=== PATIENT | male | born 1955 | race Caucasian/White ===

== ENCOUNTER → 2017-07-21 | Outpatient (CLI) | payer BC ==
[2017-07-21 17:45] LABS: ALT/SGPT 22 U/L (12-78); BLOOD UREA NITROGEN 13 mg/dl (7-18); BUN/CREATININE RATIO 15.9 (10-20); CARBON DIOXIDE 26 mmol/L (21-32); CHLORIDE 108 mmol/L (98-107); CHOLESTEROL 210 mg/dl (0-200); CREATININE 0.82 mg/dl (0.60-1.40); GLUCOSE 86 mg/dl (70-99); POTASSIUM 4.1 mmol/L (3.5-5.1); SODIUM 141 mmol/L (136-145); TRIGLYCERIDES 110 mg/dl (0-150); VERY LOW DENSITY LIPOPROT CALC 22 mg/dl
[2017-07-21 17:49] LABS: ALB/GLOB RATIO 1.3 (0.9-2); ALKALINE PHOSPHATASE 118 U/L (45-117); AST/SGOT 17 U/L (15-37); CHOLESTEROL/HDL RATIO 3.9; HDL CHOLESTEROL 54 mg/dl; LDL CHOLESTEROL CALCULATED 134 mg/dl
== END | disposition home or self-care (01) ==
LOC: C.LABBFT 15:09
PROVIDERS: ATTEND Internal Medicine
DX: Z00.00 Encounter for general adult medical examination without abnormal findings (principal); E78.5 Hyperlipidemia, unspecified; Z12.5 Encounter for screening for malignant neoplasm of prostate

== ENCOUNTER 2019-10-16 22:17 | Inpatient (IN) ==
[2019-10-16 23:00] LABS: Basophils # (auto) 0.04 K/uL (0-0.2); Basophils % (auto) 0.6 %; Eosinophils # (auto) 0.12 K/uL (0-0.5); Eosinophils % (auto) 1.8 %; Hematocrit (blood only) 42.8 % (42-52); Hemoglobin 14.5 g/dL (14.0-18.0); Immature Granulocytes # (auto) 0.01 K/uL (0.00-0.02); Immature Granulocytes % (auto) 0.1 %; Lymphocytes # (auto) 2.74 K/uL (1.2-3.4); Lymphocytes % (auto) 40.2 %; Mean Corpuscular Hemoglobin 28.5 pg (25-34); Mean Corpuscular Hgb Conc 33.9 g/dL (32-36); Mean Corpuscular Volume 84.3 fL (80-100); Mean Platelet Volume 8.5 fL (7.4-10.4); Monocytes # (auto) 0.66 K/uL (0.11-0.59); Monocytes % (auto) 9.7 %; Neutrophils # (auto) 3.24 K/uL (1.4-6.5); Neutrophils % (auto) 47.6 %; Platelet Count 277 K/uL (130-400); RDW Coefficient of Variation 13.2 % (11.5-14.5); RDW Standard Deviation 40.1 fL (36.4-46.3); Red Blood Count 5.08 M/uL (4.7-6.1); White Blood Count 6.81 K/uL (4.8-10.8)
--- NOTE | 2019-10-16 23:03 | XRay Report ---
SINGLE VIEW CHEST CLINICAL HISTORY: Change in mental status. FINDINGS: An AP, portable, upright chest radiograph is obtained. No prior studies are available for c omparison at the time of dictation. The examination is degraded by portable technique and patient rot ation. The cardiomediastinal silhouette is unremarkable. Airspace opacities are noted in the left keri ng base. The right lung appears clear. No large pleural effusion is identified. No pneumothorax is se en. The bony thorax is grossly intact. IMPRESSION: There are airspace opacities at the left lung base which likely represent atelectasis. Co rrelate clinically for evidence of superimposed pneumonia. ACT 112: Negative or not required by law. Electronically signed by: Moisés Pal M.D. 10/16/2019 11:02 PM
[2019-10-16 23:04] LABS: Alanine Aminotransferase 29 U/L (12-78); Albumin Level 3.7 gm/dl (3.4-5.0); Aspartate Aminotransferase 18 U/L (15-37); BUN Creatinine Ratio 14.6 (10-20); Blood Urea Nitrogen 15 mg/dl (7-18); Calcium 8.7 mg/dl (8.5-10.1); Carbon Dioxide 30 mmol/L (21-32); Chloride 107 mmol/L (98-107); Creatinine Clr Calc Pharmacy 75.8 ml/min; Est GFR (African American) 89.2; Est GFR (Non-African American) 76.9; Glucose 91 mg/dl (70-99); Magnesium 2.1 mg/dl (1.8-2.4); Potassium 3.9 mmol/L (3.5-5.1); Sodium 141 mmol/L (136-145)
[2019-10-16 23:07] LABS: Partial Thromboplastin Ratio 0.9; Partial Thromboplastin Time 25.1 Seconds (21.0-31.0)
[2019-10-16 23:09] LABS: Albumin Globulin Ratio 1.1 (0.9-2); Alkaline Phosphatase 115 U/L (45-117); Bilirubin,Total 0.3 mg/dl (0.2-1); Globulin 3.3 gm/dl (2.5-4.0); Troponin I < 0.015 ng/ml (0-0.045)
--- NOTE | 2019-10-16 23:22 | Emergency Department Note ---
History of Present Illness General Chief Complaint: Altered Mental Status Stated Complaint: AMS Source: patient and family Mode of arrival: EMS Limitations: no limitations History of Present Illness Provider complaint: altered mental status and decreased responsiveness Onset (ago): hour(s) (1.5) Time: 21:00 Timing confirmed by: spouse Severity: mild Current Pain Intensity: 0 Consistency of symptoms: waxing and waning (completely subsided) Context: no alcohol abuse, no trauma, no recent fever, no diabetes, no liver disease, no seizure disorder, no COPD and no HIV Associated symptoms: + denies other symptoms Treatments prior to arrival: none This 64-year-old male patient presents emergency department today via ambulance with complaints of altered mental status. The patient states he had a very long day today and was falling asleep on the couch this evening while watching TV and reading a magazine. He states he remembers getting up off of the couch, turning off the lights, and walking back the hallway toward the bedroom, and the next thing he remembers he was sitting on the couch again. The patient's family provides the remainder of the history. The patient's daughter states she went to the bathroom, and when she opened the door, her father was standing there staring into space. She states she tried to talk to him and ask him questions, and he was not responding. his eyes were open, there was no facial droop, but he was unable to speak. She was able to guide him back to the living room onto the couch, and another family member came to the house, which the patient states he does recall, but barely. This episode occurred at approximately 9:00 and lasted 10 to 15 minutes. Upon arrival of BLS, the patient continued to be somewhat altered, but upon arrival of the medics, the patient's symptoms had completely resolved. At this time, the patient states he feels completely normally. The patient denies any chest pain, dyspnea, numbness, tingling, weakness, nausea, vomiting, slurred speech, confusion, dizziness, headache, abdominal pain, or other associated symptoms. He denies any recent fever or illness. His daughter does indicate that last week while visiting the [facility], he was "clumsy", and was dropping objects and stumbling around. Again, there were no focal deficits at that time, and his symptoms resolved relatively quickly. He denies any recent trauma or injury. Home Medications Home Medications Medication Instructions Recorded Confirmed Type elfwsyak-rko-exfwu-vit K-lycop 1 tab PO DAILY 10/16/19 10/16/19 History [One-A-Day Men's Multivitamin] Allergies Allergy/AdvReac Type Severity Reaction Status Date / Time No Known Allergies Allergy Mild Unverified 10/16/19 23:25 Past Med/Surg History Medical History (Updated 10/17/19 @ 01:37 by Selin Galeas PA-C) No pertinent past medical history Surgical History No pertinent past surgical history Family History Father , 43 Myocardial infarction Brother Myocardial infarction Social History Preferred Language: Malagasy Feels Safe at Home: Yes Smoking Status: Never smoker Review of Systems A total of 10 systems reviewed and were otherwise negative Physical Exam Vital Signs Vital Signs - 24 hr 10/16/19 22:23 10/16/19 22:30 10/16/19 23:10 Temperature 36.8 C Temperature Source Oral Pulse Rate 58 L 59 L Pulse Rate [Apical] 61 Pulse Rate from SpO2 Sensor 60 Pulse Rhythm Regular Pulse Strength Normal Respiratory Rate 20 18 16 Blood Pressure 156/95 H 152/86 H Blood Pressure [Right Arm] 149/109 H Blood Pressure Mean 115 92 Blood Pressure Mean [Right Arm] 122 Blood Pressure Position Sitting Pulse Oximetry 97 100 98 Oxygen Delivery Method Room Air Sepsis Recent Fever Within 48 Hours No Sepsis New/Unexplained Change in Mental Status No Sepsis Action Taken by Nursing No Action Required 10/17/19 00:41 Temperature Temperature Source Pulse Rate Pulse Rate [Apical] 57 L Pulse Rate from SpO2 Sensor Pulse Rhythm Pulse Strength Respiratory Rate 18 Blood Pressure Blood Pressure [Right Arm] 154/86 H Blood Pressure Mean Blood Pressure Mean [Right Arm] 108 Blood Pressure Position Pulse Oximetry 97 Oxygen Delivery Method Room Air Sepsis Recent Fever Within 48 Hours Sepsis New/Unexplained Change in Mental Status Sepsis Action Taken by Nursing VITALS: Vitals are noted on the nurse's note and reviewed by myself. Vital signs stable. GENERAL: This is a 64-year-old white male, in no acute distress, nondiaphoretic, well-developed well-nourished. SKIN: The skin was without rashes, erythema, edema, or bruising. There is no tenting of the skin. Capillary refill less than 2 seconds. HEAD: Normocephalic atraumatic. EARS: External auditory canals clear, tympanic membranes pearly vinson without erythema or effusion bilaterally. EYES: Pupils equal round and reactive to light and accommodation. Conjunctivae without injection, sclerae without icterus. Extraocular movements intact. NOSE: Patent, turbinates without inflammation or discharge. No sinus tenderness. MOUTH: Mucous membranes moist. Tonsils are not enlarged. Pharynx without erythema or exudate. Uvula midline. Airway patent. Tongue does not deviate. NECK: Supple without nuchal rigidity. No lymphadenopathy. No thyromegaly. Cervical spine is nontender. No JVD. HEART: Regular rate and rhythm without murmurs gallops or rubs. LUNGS: Clear to auscultation bilaterally without wheezes, rales or rhonchi. No dullness to percussion. No retractions or accessory muscle use. ABDOMEN: Positive bowel sounds x 4. Normal tympanic percussion. Soft, nontender, without masses or organomegaly. Nayak sign negative. No guarding or rebound tenderness. MUSCULOSKELETAL: No muscle atrophy, erythema, or edema noted. Full range of motion without joint tenderness in all extremities. No tenderness to palpation. Normal gait. Strength 5/5 throughout. NEURO: Patient was alert and oriented to person place and time. Normal sensation to light and sharp touch. Deep tendon reflexes 2+ throughout. No focal neurological deficits. Cranial nerves II through XII grossly intact. Course The patient was seen and evaluated as above. IV access obtained, labs drawn. Imaging performed and reviewed by myself and radiologist as above. Labs reviewed by myself. I discussed the findings with the patient at bedside. I did recommend admission. The patient was agreeable. I discussed the case with my attending. I discussed the case with the case operator. [facility] Smith. He did agree to see and evaluate the patient. Administered Medications Ioversol (Optiray 320 100ml) 119 ml IV ONCE PRN PRN Reason: Interaction Checking Stop: 10/21/19 00:49 Last Admin: 10/17/19 00:50 Dose: 119 ml Documented by: [id number] Medical Decision Making Differential Diagnosis infection, electrolyte abnormalities, dysrhythmia, CVA, ICH, toxicologic, neurologic, ACS, alcoholic intoxication, altered mental status, delirium, dementia, hypoglycemia, hyponatremia, subarachnoid hemorrhage and sepsis Home Medications Current Medication List: was personally reviewed by me Laboratory Data Attestation: I reviewed the patient's lab results. No leukocytosis, anemia, thrombocytopenia. Renal, hepatic function, and electrolytes without significant abnormality. Troponin negative. Coags normal. : 10/16/19 22:29 10/16/19 22:29 Lab Results 10/16/19 10/16/19 10/16/19 Range/Units 22:29 22:29 22:29 WBC 6.81 (4.8-10.8) K/uL RBC 5.08 (4.7-6.1) M/uL Hgb 14.5 (14.0-18.0) g/dL Hct 42.8 (42-52) % MCV 84.3 (80-100) fL MCH 28.5 (25-34) pg MCHC 33.9 (32-36) g/dL RDW Std Deviation 40.1 (36.4-46.3) fL RDW Coeff of Macrina 13.2 (11.5-14.5) % Plt Count 277 (130-400) K/uL MPV 8.5 (7.4-10.4) fL Immature Gran % (Auto) 0.1 % Neut % (Auto) 47.6 % Lymph % (Auto) 40.2 % Boundary % (Auto) 9.7 % Eos % (Auto) 1.8 % Baso % (Auto) 0.6 % Immature Gran # (Auto) 0.01 (0.00-0.02) K/uL Neut # (Auto) 3.24 (1.4-6.5) K/uL Lymph # (Auto) 2.74 (1.2-3.4) K/uL Boundary # (Auto) 0.66 H (0.11-0.59) K/uL Eos # (Auto) 0.12 (0-0.5) K/uL Baso # (Auto) 0.04 (0-0.2) K/uL PT 10.0 (9.0-12.0) Seconds INR 1.0 (0.9-1.1) APTT 25.1 (21.0-31.0) Seconds PTT Ratio 0.9 Sodium 141 (136-145) mmol/L Potassium 3.9 (3.5-5.1) mmol/L Chloride 107 (98-107) mmol/L Carbon Dioxide 30 (21-32) mmol/L Anion Gap 4.0 (3-11) BUN 15 (7-18) mg/dl Creatinine 1.03 (0.6-1.4) mg/dl Est Cr Clr Drug Dosing 75.8 ml/min Est GFR ( Amer) 89.2 Est GFR (Non-Af Amer) 76.9 BUN/Creatinine Ratio 14.6 (10-20) Glucose 91 (70-99) mg/dl Calcium 8.7 (8.5-10.1) mg/dl Magnesium 2.1 (1.8-2.4) mg/dl Total Bilirubin 0.3 (0.2-1) mg/dl AST 18 (15-37) U/L ALT 29 (12-78) U/L Alkaline Phosphatase 115 (45-117) U/L Troponin I < 0.015 (0-0.045) ng/ml Total Protein 7.0 (6.4-8.2) gm/dl Albumin 3.7 (3.4-5.0) gm/dl Globulin 3.3 (2.5-4.0) gm/dl Albumin/Globulin Ratio 1.1 (0.9-2) Blood Type Antibody Screen 10/16/19 Range/Units 22:52 WBC (4.8-10.8) K/uL RBC (4.7-6.1) M/uL Hgb (14.0-18.0) g/dL Hct (42-52) % MCV (80-100) fL MCH (25-34) pg MCHC (32-36) g/dL RDW Std Deviation (36.4-46.3) fL RDW Coeff of Macrina (11.5-14.5) % Plt Count (130-400) K/uL MPV (7.4-10.4) fL Immature Gran % (Auto) % Neut % (Auto) % Lymph % (Auto) % Boundary % (Auto) % Eos % (Auto) % Baso % (Auto) % Immature Gran # (Auto) (0.00-0.02) K/uL Neut # (Auto) (1.4-6.5) K/uL Lymph # (Auto) (1.2-3.4) K/uL Boundary # (Auto) (0.11-0.59) K/uL Eos # (Auto) (0-0.5) K/uL Baso # (Auto) (0-0.2) K/uL PT (9.0-12.0) Seconds INR (0.9-1.1) APTT (21.0-31.0) Seconds PTT Ratio Sodium (136-145) mmol/L Potassium (3.5-5.1) mmol/L Chloride (98-107) mmol/L Carbon Dioxide (21-32) mmol/L Anion Gap (3-11) BUN (7-18) mg/dl Creatinine (0.6-1.4) mg/dl Est Cr Clr Drug Dosing ml/min Est GFR ( Amer) Est GFR (Non-Af Amer) BUN/Creatinine Ratio (10-20) Glucose (70-99) mg/dl Calcium (8.5-10.1) mg/dl Magnesium (1.8-2.4) mg/dl Total Bilirubin (0.2-1) mg/dl AST (15-37) U/L ALT (12-78) U/L Alkaline Phosphatase (45-117) U/L Troponin I (0-0.045) ng/ml Total Protein (6.4-8.2) gm/dl Albumin (3.4-5.0) gm/dl Globulin (2.5-4.0) gm/dl Albumin/Globulin Ratio (0.9-2) Blood Type A Positive Antibody Screen NEGATIVE Imaging Data Radiologist's Impression: CT HEAD: Findings: Right medial temporal lobe 2.7 x 2 cmarea of lowattenuation with subtle mass- effect on the right temporal horn this is suspicious for a subacute infarct. Subtle lowattenuation in the anterior right caudate head. Old lacunar infarct in the left basal ganglia. Focal infection or acute infarct is suspected. Consider MRI characterization. Paranasal sinuses, mastoid air cells are normal. Impression: 1. 2.7 x 2 cmright medial temporal lobe low-densityarea. Suspect acute/subacute infarct versus focal infection. Recommend MRI characterization. 2. Old lacunar infarct in left basal ganglia and right anterior caudate head Radiologist: Kajal Redmond MD SINGLE VIEW CHEST CLINICAL HISTORY: Change in mental status. FINDINGS: An AP, portable, upright chest radiograph is obtained. No prior lori dies are available for comparison at the time of dictation. The examination is degraded by portable technique and patient rotation. The cardiomediastinal silhouette is unremarkable. Airspace opacities are noted in the left lung base. The right lung appears clear. No large pleural effusion is identified. No pneumothorax is seen. The bony thorax is grossly intact. IMPRESSION: There are airspace opacities at the left lung base which likely represent atelectasis. Correlate clinically for evidence of superimposed pneumonia. ACT 112: Negative or not required by law. Electronically signed by: Moisés Pal M.D. 10/16/2019 11:02 PM ECG Data Attestation: I personally reviewed and interpreted this ECG as follows: Indication: altered mental status Rate (beats per minute): 58 Rhythm: sinus bradycardia Findings: no T-wave inversion, no ST elevation, no acute ischemic change, no prolonged QT and no ectopy Comparison ECG Date: no prior available Blood Pressure Blood Pressure Findings: Elevated blood pressure Blood Pressure Disposition: elevated BP felt to be situational Head Trauma GCS Score: 15 MDM Narrative This 64-year-old male patient presents to the emergency department today due to a transient episode of altered mental status which occurred approximately 1 1/2 hours prior to arrival. Upon arrival, his neuro examination is completely normal. There is no current deficit. The patient did apparently have an episode approximately 1 week ago of "clumsiness" according to his family. Work- up here in the ED does not show any acute laboratory abnormalities. CT imaging does show an area of acute to subacute infarct versus infection. Given the patient's symptoms and this finding, I did recommend admission for further evaluation and management. The patient will be admitted to the hospitalist service. Please see hospitalist dictation regarding ongoing management care of this patient. The chart was completed utilizing [employer] voice recognition software. Grammatical errors, random word insertions, pronoun errors, and incomplete sentences are an occasional consequence of this system due to software limita tions, ambient noise, and hardware issues. Any formal questions or concerns about the content, text, or information contained within the body of this dictation should be directly addressed to the provider for clarification. Impression & Plan CVA (cerebral vascular accident), Altered mental status Discharge Plan Visit Data Chief Complaint: Altered Mental Status Stated Complaint: AMS ED Provider: [facility] ED Midlevel Provider: Selin Galeas Discharge Problem: CVA (cerebral vascular accident), Altered mental status Patient Disposition: Admitted As Inpatient Forms Stand Alone Forms: [facility] Prescriptions Prescriptions: No Action One-A-Day Men's Multivitamin 400-20-300 mcg Tablet 1 tab PO DAILY RF: 0 Referrals Referrals: Caleb Galicia III, MD [Primary Care Provider] -
[2019-10-17] MEDS ORDERED: IOVERSOL 100ml IV PRN (00:50)
--- NOTE | 2019-10-17 01:29 | History & Physical Report ---
Date of Service October 17, 2019 Assessment & Plan (1) CVA (cerebral vascular accident): CT of head demonstrates a 2.7 x 2 right medial temporal lobe acute/subacute infarct versus focal infection. CTA of head and neck was normal. MRI unable to be done due to metal in the patient's hand. Patient admitted under the ischemic stroke without TPA protocol. Patient disqualified from TPA due to abnormal CT. Aspirin 81 mg p.o. daily. Check a hemoglobin A1c and fasting lipid panel. Hypercoagulable work-up. The patient will be admitted to telemetry for serial cardiac enzymes, serial EKG's, cardiac rhythm monitoring and a 2-D echocardiogram with Dopplers. Acute focal infection was brought up in the differential by radiology, however, the primary remaining issue to investigate would be that of SBE. The patient does not appear toxic. Consult neurology, PT, OT, speech therapy. Present on Admission?: Yes History of Present Illness Chief Complaint: Patient is brought to the emergency department due to a now spontaneously resolved episode of nonresponsiveness to family members of 10 to 15 minutes duration. Primary Care Provider: Caleb Galicia MD The patient is a 64-year-old male with a negative past medical history, who presents to the emergency department via ambulance, with family present that noticed an episode of nonresponsiveness where the patient just stared off into space, did not answer them when they spoke to him, but he was able to be steered over to a chair where he sat down, and ultimately gradually regained normal activity. His reports that as he was recovering, he appeared to be trying to speak but was not able to get words to come out. In the emergency departmen t, the patient was completely back to baseline. He did not have any abnormal sensation or weakness on either side. He denies any associated headache, vision or hearing change. He does report a viral illness about 1 month ago, that did resolve after 1 to 2 weeks. He has not had any similar issues with decreased responsiveness in the past. He has not had any recent travels or sick exposures. Allergies Allergy/AdvReac Type Severity Reaction Status Date / Time No Known Allergies Allergy Mild Unverified 10/16/19 23:25 Home Medications Home Medications Medication Instructions Recorded Confirmed Type zcjiaarv-vfp-hkldy-vit K-lycop 1 tab PO DAILY 10/16/19 10/16/19 History [One-A-Day Men's Multivitamin] Past Med/Surg History Medical History (Updated 10/17/19 @ 01:37 by Selin Galeas PA-C) No pertinent past medical history Surgical History No pertinent past surgical history Family History Father , 43 Myocardial infarction Brother Myocardial infarction Social History Preferred Language: Malian Communication Ability: Effective Beliefs That Will Affect Care: None Current Living Situation: Spouse Other Information That Helps Us Care for You: No Feels Safe at Home: Yes Safety Concerns: Feels Safe At This Time Smoking Status: Never smoker Do You Dip or Chew Tobacco: No ; Hx Alcohol Use: No Hx Substance Use: No Review of Systems Review of Systems: The patient denies chest pain, palpitations, shortness of breath, dyspnea on exertion, cough, lower extremity swelling, sore throat, fevers, chills, sweats, weight change, fatigue, nausea, vomiting, diarrhea , constipation, abdominal pain, pelvic pain, blood in urine or stool, dysuria, urinary frequency or urgency, lightheadedness, dizziness, loss of consciousness, rash, abnormal bruising or bleeding, imbalance, focal or generalized weakness, numbness or tingling in arms or legs, generalized arthralgias or myalgias, back or neck pain, or night sweats. The review of systems is otherwise negative other than for that already noted above, and at least 10 systems have been reviewed. Physical Exam Physical Exam: The patient is awake, alert and oriented 3, well developed and well nourished, normocephalic and atraumatic, lying in bed and in no acute distress. HEENT--PERRL, EOMI, mucous membranes and oropharynx normal. Neck--supple. No JVD. No bruits. Thyroid normal, trachea midline, no adenopathy. Heart--normal S1 and S2. No murmurs, rubs or gallops. Lungs--clear bilaterally, no respiratory distress, no accessory muscle use. Abdomen--normal bowel sounds and soft. Nontender. Nondistended. Extremities--no cyanosis or clubbing. No edema. Dermatologic--normal skin turgor, normal color, no abnormal lymph nodes, no rash. Neurologic--cranial nerves II through XII grossly intact. Rheumatologic--normal range of motion. Psychiatric--normal affect. Results & Data Vital Signs (Past 12 Hours) Vital Signs Temp Pulse Pulse Resp BP BP Pulse Ox 10/17/19 00:41 57 L 18 154/86 H 97 10/16/19 23:10 61 16 149/109 H 98 10/16/19 22:30 59 L 18 152/86 H 100 10/16/19 22:23 98.2 F 58 L 20 156/95 H 97 Code Status & VTE Plan Code Status Full code VTE Prophylaxis Plan VTE Prophylaxis will be ordered: Yes PG Care Time/CCT Total # of Minutes Spent Total Time Spent with Patient: Total time spent is greater than 50% in coordination of care (as documented) at patient's floor/unit and/or counseling patient: (1) CVA (cerebral vascular accident) CVA mechanism: unspecified Qualified Code(s): I63.9 - Cerebral infarction, unspecified
[2019-10-17 01:56] LABS: Appearance Urine Clear (Clear); Bilirubin Urine Negative (Negative); Blood Urine Negative (Negative); Color Urine Yellow; Glucose Urine UA Negative (Negative); Ketones Urine Negative (Negative); Leukocyte Esterase Urine Negative (Negative); Nitrite Urine Negative (Negative); Protein Urine Negative (Negative); Specific Gravity Urine 1.023 (1.000-1.030); Urobilinogen Urine Negative (Negative); pH Urine 7.5 (4.5-7.5)
[2019-10-17] MEDS ORDERED: ONDANSETRON INJ 2 MG/ML 2 ML VIAL IV PRN (02:28)
[2019-10-17] MEDS ORDERED: PHARMACIST DISCHARGE MED REC CONSULT PRN (02:28)
[2019-10-17] MEDS ORDERED: ENOXAPARIN INJ 40 MG/0.4 ML SYR SQ SCH (04:00)
[2019-10-17 06:07] LABS: Basophils # (auto) 0.02 K/uL (0-0.2); Basophils % (auto) 0.3 %; Eosinophils # (auto) 0.09 K/uL (0-0.5); Eosinophils % (auto) 1.5 %; Hematocrit (blood only) 40.8 % (42-52); Hemoglobin 13.9 g/dL (14.0-18.0); Immature Granulocytes # (auto) 0.01 K/uL (0.00-0.02); Immature Granulocytes % (auto) 0.2 %; Lymphocytes # (auto) 2.62 K/uL (1.2-3.4); Lymphocytes % (auto) 42.3 %; Mean Corpuscular Hemoglobin 28.2 pg (25-34); Mean Corpuscular Hgb Conc 34.1 g/dL (32-36); Mean Corpuscular Volume 82.8 fL (80-100); Mean Platelet Volume 8.6 fL (7.4-10.4); Monocytes # (auto) 0.39 K/uL (0.11-0.59); Monocytes % (auto) 6.3 %; Neutrophils # (auto) 3.06 K/uL (1.4-6.5); Neutrophils % (auto) 49.4 %; Platelet Count 234 K/uL (130-400); RDW Coefficient of Variation 13.3 % (11.5-14.5); RDW Standard Deviation 40.1 fL (36.4-46.3); Red Blood Count 4.93 M/uL (4.7-6.1); White Blood Count 6.19 K/uL (4.8-10.8)
[2019-10-17 06:14] LABS: Prothrombin Time 10.2 Seconds (9.0-12.0)
[2019-10-17 06:35] LABS: BUN Creatinine Ratio 14.2 (10-20); Calcium 8.3 mg/dl (8.5-10.1); Creatinine Clr Calc Pharmacy 100.1 ml/min; Est GFR (African American) 111.3; Est GFR (Non-African American) 96.1; Potassium 3.9 mmol/L (3.5-5.1)
--- NOTE | 2019-10-17 06:58 | XRay Report ---
XR hand LT min 3V routine CLINICAL HISTORY: foreign body COMPARISON: None FINDINGS: No acute fracture is noted. There is severe arthritis of the left first carpometacarpal trang int. A 4 mm metallic density consistent with a foreign body is noted at the base of the left second m etacarpal. No additional radiopaque foreign bodies are noted. IMPRESSION: 1. 4 mm metallic foreign body at the base of the left second metacarpal. This is not considered a con traindication to MRI. 2. No acute fracture. 3. Severe osteoarthritis of the left first carpometacarpal joint. ACT 112: Negative or not required by law. Electronically signed by: Sourav Johnson M.D. 10/17/2019 6:56 AM
--- NOTE | 2019-10-17 07:11 | CT Scan Report ---
CT OF THE HEAD WITHOUT CONTRAST CLINICAL HISTORY: Stroke evaluation COMPARISON STUDY: No previous studies for comparison. CT DOSE: 537.48 mGy.cm TECHNIQUE: Helical axial images of the head were obtained without IV contrast. Automated exposure con trol was utilized for the study. A dose lowering technique was utilized adhering to the principles o f ALARA. FINDINGS: No acute hemorrhage is present. Note is made of a 2.6 cm hypodensity within the right tempo ral lobe. This may have minimal mass effect. Ventricular system is normal. Basilar cisterns are paten t. There are no extra-axial collections. White matter hypodensity suggests small vessel disease. Ther e are no significant calvarial abnormalities. IMPRESSION: 1. No acute intracranial hemorrhage. 2. 2.6 cm right temporal lobe hypodensity. This is nonspecific and an MRI of the brain with and witho ut contrast is recommended. ACT 112: Negative or not required by law. Electronically signed by: Sourav Johnson M.D. 10/17/2019 7:09 AM
[2019-10-17 07:17] LABS: Estimated Average Glucose 111 mg/dl; Hemoglobin A1C 5.5 % (4.5-5.6)
--- NOTE | 2019-10-17 07:30 | CT Scan Report ---
CT ANGIOGRAPHY OF THE NECK WITH CONTRAST CLINICAL HISTORY: Abnormal CT scan. Stroke evaluation. COMPARISON STUDY: No previous studies for comparison. Technique: CT angiography of the carotid and vertebral arteries was obtained using Veotag 320 IV and 3D reconstruction on an independent workstation. NASCET criteria was utilized. Automated exposure c ontrol was utilized for the study. A dose lowering technique was utilized adhering to the principles of ALARA. CT DOSE: 622.00 mGy.cm Findings: Lung apices are clear. There is no cervical lymphadenopathy or cervical spine fracture. The bilateral common carotid, cervical internal carotid and vertebral arteries are patent. There is mild plaque within the proximal right internal carotid artery as well as the proximal left internal carot id artery without stenosis. There is no dissection within the major vessels of the neck. The CTA of t he head will be reported separately. IMPRESSION: No stenosis or dissection within the major vessels of the neck. Mild atherosclerotic plaque. ACT 112: Negative or not required by law. Electronically signed by: Sourav Johnson M.D. 10/17/2019 7:29 AM
--- NOTE | 2019-10-17 07:35 | CT Scan Report ---
CTA ANGIOGRAPHY OF THE HEAD CLINICAL HISTORY: abnormal CT COMPARISON STUDY: Head CT October 16, 2019. TECHNIQUE: Helical axial images of the head were obtained following uneventful intravenous administr ation of 119 cc of Optiray 320. Automated exposure control was utilized for the study. A dose lower ing technique was utilized adhering to the principles of ALARA. FINDINGS: No acute intracranial hemorrhage is noted. A 2.5 cm right temporal lobe hypodensity is agai n noted. This was shown on unenhanced head CT. Ventricular system is normal. The basilar cisterns are patent. There are no extra-axial collections. The bilateral M1, M2, A1 and A2 segments are patent. T here is no intracranial aneurysm or thrombus. Posterior circulation is intact as well. IMPRESSION: 1. No intracranial aneurysm, thrombus or abrupt vessel cut off. 2. 2.5 cm right upper lobe hypodensity which remains indeterminate. An MRI of the brain with and with out contrast is recommended. ACT 112: Negative or not required by law. Electronically signed by: Sourav Johnson M.D. 10/17/2019 7:34 AM
--- NOTE | 2019-10-17 08:51 | Magnetic Resonance Report ---
MRA OF THE INTRACRANIAL CIRCULATION WITHOUT CONTRAST CLINICAL HISTORY: rule out cva. stroke like symptoms COMPARISON STUDY: Head CT October 16, 2019. CTA of the head October 13, 2019. TECHNIQUE: Utilizing a 1.5 Sheree magnet and 3-D [id number] technique, unenhanced MRA of the intra cranial circulation was obtained. FINDINGS: A 2.6 cm right temporal lobe focus is noted, as shown on head CT. The bilateral M1, M2, A1 and A2 segments are patent. There is no intracranial aneurysm, thrombus or abrupt vessel cut off. The posterior circulation is also intact. Bilateral posterior communicating arteries are noted as well a s an anterior communicating artery. IMPRESSION: 1. Unremarkable MRA of the head. 2. 2.6 cm right temporal lobe focus which is better depicted on the MRI of the brain. Please see that report for further description. ACT 112: Negative or not required by law. Electronically signed by: Sourav Johnson M.D. 10/17/2019 8:49 AM
[2019-10-17] MEDS ORDERED: ATORVASTATIN 40 MG TAB PO SCH (09:00)
[2019-10-17] MEDS ORDERED: ASPIRIN 81 MG ECTAB PO SCH (09:00)
[2019-10-17] MEDS ORDERED: GADOBUTROL 30ML VIAL IV PRN (09:03)
--- NOTE | 2019-10-17 09:47 | Magnetic Resonance Report ---
MR angio neck wo/w con CLINICAL HISTORY: stroke like symptoms. COMPARISON STUDY: CTA of the neck October 17, 2019. TECHNIQUE: Utilizing a 1.5 Sheree magnet, unenhanced and contrast-enhanced MRA of the neck was perform ed. Intravenous injection of 8 cc of Gadavist was uneventful. FINDINGS: The bilateral common carotid, cervical internal carotid and vertebral arteries are patent. There is minimal irregularity within the proximal right internal carotid artery due to plaque. There is no stenosis. There is no dissection within the major vessels of the neck. IMPRESSION: Unremarkable MRA of the neck. ACT 112: Negative or not required by law. Electronically signed by: Sourav Johnson M.D. 10/17/2019 9:46 AM
--- NOTE | 2019-10-17 10:02 | Magnetic Resonance Report ---
MRI OF THE BRAIN WITHOUT AND WITH IV CONTRAST CLINICAL HISTORY: Possible stroke. Altered mental status. COMPARISON STUDY: Head CT October 16, 2019. CTA of the head October 17, 2019. TECHNIQUE: Utilizing a 1.5 Sheree magnet and dedicated coil, multiplanar, multiecho imaging of the br ain was performed pre and postcontrast administration. IV administration of 8 mL of Gadavist contras t was uneventful. FINDINGS: There are no foci of restricted diffusion to suggest acute infarct. The ventricular system is normal. Basilar cisterns are patent. There are no extra-axial collections. Flow-voids for the darline r intracranial vessels are noted. There is no pathologic enhancement within the brain. Note is made o f a 2.6 x 2.6 x 2 cm T2 hyperintense lesion within the medial right temporal lobe as shown on head CT . This has mixed signal intensity on the coronal FLAIR sequence. There is an apparent T2 hyperintense capsule of this lesion. This has mild mass effect or enhancement. No associated restricted effusion is present. No additional intracranial lesions are present. White matter T2 hyperintense foci suggest small vessel disease. Calvarial signal is normal. IMPRESSION: 1. No acute intracranial findings. 2. 2.6 cm nonenhancing T2 hyperintense lesion within the medial right temporal lobe. Probable thin ca psule. Mild mass effect. No associated vasogenic edema. The MRI appearance is nonspecific and differe ntial considerations include a complex neuroepithelial or choroidal fissure cyst. A nonenhancing neop lasm cannot be excluded and therefore MRI follow-up is recommended in 3 months. In addition, nonemerg ent neurosurgical consultation is suggested. ACT 112: Negative or not required by law. Electronically signed by: Sourav Johnson M.D. 10/17/2019 10:00 AM
--- NOTE | 2019-10-17 10:27 | Neurology Consultation ---
Date of Consultation October 17, 2019 Assessment & Plan (1) Temporal lobe lesion: This patient presented with a transient lapse in awareness followed by a period of confusion that subsequently resolved. He was found to have a 2.6 cm cystic lesion within the right temporal lobe, possibly a complex choroid plexus cyst versus a nonenhancing neoplasm. Taken together, his presentation was potentially consistent with a partial complex seizure. There was no evidence of acute or subacute stroke on his imaging. There is no evidence of either an intracranial or cervical vascular lesion. He does not have any known medical risk factors for stroke or thromboembolic disease other than age and family history. I discussed the above findings directly with the patient and his family at bedside this morning. At this point, I would recommend obtaining an EEG. I would also recommend starting Keppra given his clinical presentation was potentially consistent with a partial complex seizure related to the right temporal lobe cystic lesion. I recommended that the patient not drive or operate heavy machinery until further outpatient evaluation at a tertiary center where he can be seen by a neurosurgeon and epilepsy specialist. Case discussed with resident physician at bedside as well this morning. Please contact me if I may be of further assistance. History of Present Illness Reason for Consultation: Abnormal head CT, concern for possible stroke Requesting Physician: Cr Smith MD Attending Physician: Richardson Georges History of Present Illness The patient is a 64-year-old male with a chief complaint of altered awareness. The episode was witnessed by his daughter. Patient spouse and [id number] were present at the time of my assessment of the patient. The episode occurred last night, about 1-1/2 hours prior to presentation in the emergency department. The patient was standing up at the time of symptom onset. His eyes were open although he was unresponsive for several minutes. No eyelid fluttering, lip smacking, or other abnormal movements were observed. The episode lasted for about 10 to 15 minutes. Family members assisted him to the couch. He was confused for several minutes afterwards and had difficulty speaking. He is amne stic for the actual event but does recall regaining awareness and remembers emergency medical personnel and other family members gathered around him. The patient denies experiencing any headache, vision disturbance, focal weakness, or sensory loss. He does recall an episode of dizziness that occurred about 1 to 2 weeks ago, but without other associated symptoms. He does not have a known history of seizures, syncope, or loss of consciousness. He has never had a similar episode of lapse in awareness previously. The patient is otherwise healthy without any known significant past medical history. He does not take any prescription medications. A CT of the head completed in the emergency department revealed a 2.6 cm right temporal lobe hypodense lesion. CT angiography of the head and neck were unremarkable. Follow-up imaging including contrast-enhanced MRI of the brain and MR angiography of the head and neck have been completed as well and are as described below. Allergies Allergy/AdvReac Type Severity Reaction Status Date / Time No Known Allergies Allergy Mild Unverified 10/16/19 23:25 Home Medications Home Medications Medication Instructions Recorded Confirmed Type cmzhspsv-wxu-ovpwr-vit K-lycop 1 tab PO DAILY 10/16/19 10/16/19 History [One-A-Day Men's Multivitamin] Patient History Medical History No pertinent past medical history Surgical History No pertinent past surgical history Family History Father , 43 Myocardial infarction Brother Myocardial infarction Social History Preferred Language: Serbian Communication Ability: Effective Beliefs That Will Affect Care: None Current Living Situation: Spouse Other Information That Helps Us Care for You: No Feels Safe at Home: Yes Safety Concerns: Feels Safe At This Time Smoking Status: Never smoker Do You Dip or Chew Tobacco: No ; Hx Alcohol Use: No Hx Substance Use: No Review of Systems Constitutional: no fever, no chills, no fatigue and no weight loss Eyes: no blind spots and no diplopia Ear, Nose, Mouth, Throat: + hearing loss Respiratory: no cough and no dyspnea Cardiovascular: no chest pain and no palpitations Gastrointestinal: no nausea and no vomiting Genitourinary: no dysuria and no urinary incontinence Musculoskeletal: no neck pain and no myalgia Integumentary: no rash and no lesions Neurologic: as per Subjective / HPI; no gait abnormality, no localized weakness, no loss of sensation, no tremor(s) and no headache(s) Psychiatric: no depression, no anxiety and no hallucinations Hematologic / Lymphatic: no easy bleeding, no easy bruising and no lymphadenopathy Physical Exam Physical Exam: The patient is a well-developed, well-nourished elderly male. He is alert and fully oriented. Recent and remote memory intact. Attention and concentration are normal. Patient exhibits a normal spontaneous speech pattern. He is able to name objects and repeat phrases. Patient exhibits an age- appropriate fund of knowledge and normal comprehension of vocabulary. Visual cano full to confrontation. Visual acuity normal. Pupils equal round reactive to light and accommodation. Eye movements normal. There is no ptosis, nystagmus, or ophthalmoplegia. Facial sensation intact. There is no facial droop or weakness. Hearing intact to finger rub bilaterally. Palate elevates to midline. Shoulder shrug intact. Tongue protrudes to midline. Sensation intact to all modalities in all 4 limbs. Deep tendon reflexes intact and symmetrical for the arms and legs. Plantar responses downgoing bilaterally. There is no dysdiadochokinesia or dysmetria [id number]-uv-ujyg or aixu-ji-dhfn bilaterally. I am unable to adequately visualize the optic disks or posterior segments with direct ophthalmoscopic examination. Carotid pulses normal bilaterally, no bruits to auscultation. Gait and station normal. Patient exhib its normal muscle strength and tone for all 4 limbs. No atrophy. No abnormal movements observed. Results & Data Vital Signs (Past 12 Hours) Vital Signs Temp Pulse Pulse Pulse Resp BP BP 10/17/19 07:28 36.6 C 58 L 18 126/77 10/17/19 02:32 36.4 C L 62 18 154/88 H 10/17/19 02:29 10/17/19 02:00 56 L 16 128/81 10/17/19 00:41 57 L 18 154/86 H 10/16/19 23:10 61 16 149/109 H 10/16/19 22:30 59 L 18 152/86 H 10/16/19 22:23 36.8 C 58 L 20 156/95 H Pulse Ox Pulse Ox 10/17/19 07:28 95 10/17/19 02:32 99 10/17/19 02:29 98 10/17/19 02:00 98 10/17/19 00:41 97 10/16/19 23:10 98 10/16/19 22:30 100 10/16/19 22:23 97 Laboratory Results WBC 6.19, hemoglobin 13.9, hematocrit 40.8, platelet count 234, sodium 140, potassium 3.9, BUN 11, creatinine 0.78, glucose 88, hemoglobin A1c 5.5, calcium 8.3, magnesium 2.1, AST 18, ALT 29, troponin less than 0.015, triglycerides 58, cholesterol 174, LDL 111, VLDL 12, HDL [address] of the head reveals a 2.6 cm right temporal lobe hypodensity. I reviewed the images as well as the radiologist's interpretation of this test. CT angiography of the head and neck are unremarkable. No evidence of hemodynamically significant stenosis, occlusion, dissection, or aneurysm. I reviewed the images as well as the radiologist's interpretation of this test. Contrast-enhanced MRI of the brain reveals a 2.6 cm nonenhancing T2 hyperintense lesion within the medial right temporal lobe with a probable thin capsule and mild mass-effect, no associated vasogenic edema. No evidence of acute or subacute stroke. I reviewed the images with Dr. Johnson, interpreting radiologist. Differential diagnosis includes a complex neuroepithelial choroidal fissure cyst versus a nonenhancing neoplasm. MR angiography of the head and neck unremarkable. I reviewed the images as well as the radiologist's interpretation of this test. An echocardiogram reveals normal left ventricular systolic function, ejection fraction 50 to 55%, no regional wall motion abnormalities. No interatrial shunt with injection of contrast. Electrocardiogram completed in the emergency department revealed a sinus rhythm, 58 bpm.
[2019-10-17] MEDS ORDERED: levETIRAcetam 500 MG TAB PO SCH ×2 (10:30→17:00)
--- NOTE | 2019-10-17 12:47 | Electroencephalogram ---
EEG Procedure Note Date of Service October 17, 2019 Start / End Times Start Time: 11:47 AM End Time: 12:07 PM Referring Physician Mynor Mejia MD History right temporal lobe lesion, lapse in awareness, concern for partial complex seizure Home Medication List Home Medications Medication Instructions Recorded Confirmed Type nzocicxw-aik-qmpbv-vit K-lycop 1 tab PO DAILY 10/16/19 10/16/19 History [One-A-Day Men's Multivitamin] Inpatient Medication List Aspirin (Ecotrin Ectab) 81 mg PO QAM [facility] Stop: 11/16/19 08:59 Last Admin: 10/17/19 09:31 Dose: 81 mg Documented by: [id number] Atorvastatin Calcium (Lipitor) 40 mg PO QAM [facility] Stop: 11/16/19 08:59 Last Admin: 10/17/19 09:31 Dose: 40 mg Documented by: [id number] Enoxaparin Sodium (Lovenox) 40 mg SQ Q24H [facility] Stop: 11/16/19 03:59 Last Admin: 10/17/19 05:04 Dose: 40 mg Documented by: [id number] Gadobutrol (Gadavist 30ml) 8 ml IV ONCE PRN PRN Reason: Interaction Checking Stop: 10/21/19 09:02 Last Admin: 10/17/19 09:03 Dose: 8 ml Documented by: [id number] Ioversol (Optiray 320 100ml) 119 ml IV ONCE PRN PRN Reason: Interaction Checking Stop: 10/21/19 00:49 Last Admin: 10/17/19 00:50 Dose: 119 ml Documented by: [id number] Levetiracetam (Keppra) 500 mg PO BID [facility] Stop: 11/16/19 10:29 Last Admin: 10/17/19 11:19 Dose: 500 mg Documented by: [id number] Description This is a 21 electrode EEG with a single channel dedicated to limited EKG. The electrodes were placed in accordance with the International 10-20 system. There is a posterior dominant rhythm of 10 Hz that attenuates with eye opening and has a normal anterior to posterior organization. Photic stimulation is unremarkable. There are fairly continuous right temporal sharps. In the later part of the study, during drowsiness, there is 3.5-4 Hz focal slowing at T4. Interpretation Abnormal awake and drowsy EEG with focal slowing and sharps localizing to the right temporal lobe. Clinical Correlation This abnormal EEG reveals focal slowing and potentially epileptiform abnormalities localizing to the right temporal lobe. Please see today's neurology consultation for further clinical correlation. [facility] EEG Procedure Codes Indication for Procedure (1) Complex partial seizure: (2) Temporal lobe lesion: Neurology Neurology: [id number] EEG include record awake & drowsy
--- NOTE | 2019-10-17 13:30 | Discharge Summary ---
Date of Service October 17, 2019 Admission HPI Per Admitting Provider The patient is a 64-year-old male with a negative past medical history, who presents to the emergency department via ambulance, with family present that noticed an episode of nonresponsiveness where the patient just stared off into space, did not answer them when they spoke to him, but he was able to be steered over to a chair where he sat down, and ultimately gradually regained normal activity. His reports that as he was recovering, he appeared to be trying to speak but was not able to get words to come out. In the emergency department, the patient was completely back to baseline. He did not have any abnormal sensation or weakness on either side. He denies any associated headache, vision or hearing change. He does report a viral illness about 1 month ago, that did resolve after 1 to 2 weeks. He has not had any similar issues with decreased responsiveness in the past. He has not had any recent travels or sick exposures. Admission Exam Per Admitting Provider The patient is awake, alert and oriented 3, well developed and well nourished, normocephalic and atraumatic, lying in bed and in no acute distress. HEENT--PERRL, EOMI, mucous membranes and oropharynx normal. Neck--supple. No JVD. No bruits. Thyroid normal, trachea midline, no adenopathy. Heart--normal S1 and S2. No murmurs, rubs or gallops. Lungs--clear bilaterally, no respiratory distress, no accessory muscle use. Abdomen--normal bowel sounds and soft. Nontender. Nondistended. Extremities--no cyanosis or clubbing. No edema. Dermatologic--normal skin turgor, normal color, no abnormal lymph nodes, no rash. Neurologic--cranial nerves II through XII grossly intact. Rheumatologic--normal range of motion. Psychiatric--normal affect. Principal Diagnosis Focal Seizure with Impaired Consciousness R temporal lobe lesion Discharge Exam General: In NAD Neuro: A&O x 4, CN 2-12 intact, normal [id number] testing, no pronator drift, strength 5/5 bilateral upper and lower extremities, sensation intact, DTR 2+ Pulm: CTAB equal breath sounds bilaterally CV: RRR, no m/r/g Abdomen:+BS, no TTP in all quadrants, non-distended LE: no LE edema, no calf TTP Discharge Data Allergies Allergy/AdvReac Type Severity Reaction Status Date / Time No Known Allergies Allergy Mild Unverified 10/16/19 23:25 Consultations 10/16/19 23:33 ED Decision to Admit Stat 10/17/19 02:28 Consult Case Management - Discharge Planning Routine Consult Neurology Routine Ordered Studies 10/16/19 22:45 CT head/brain wo con Urgent 10/17/19 00:07 CT angio head w con Urgent CT angio neck with con Urgent 10/17/19 07:59 MR brain wo/w con Urgent IMPRESSION: 1. No acute intracranial findings. 2. 2.6 cm nonenhancing T2 hyperintense lesion within the medial right temporal lobe. Probable thin capsule. Mild mass effect. No associated vasogenic edema. The MRI appearance is nonspecific and differential considerations include a complex neuroepithelial or choroidal fissure cyst. A nonenhancing neoplasm cannot be excluded and therefore MRI follow-up is recommended in 3 months. In addition, nonemergent neurosurgical consultation is suggested. 10/17/19 08:03 MR angio head wo con Urgent 10/17/19 08:05 MR angio neck wo/w con Urgent Hospital Course (1) Temporal lobe lesion: 64-year-old male with no prior medical history presented with 15 to 20 minutes of nonresponsiveness observed by family prior to presentation. Concern for focal seizure with impaired consciousness in the setting of right temporal lobe lesion. Focal seizure with impaired consciousness the setting of right temporal lobe lesion MRI brain: 2.6 cm nonenhancing T2 hyperintense lesion within the medial right temporal lobe. Probable thin capsule. Mild mass effect. No associated vasogenic edema. Nonspecific and differential includes a complex neuroepithelial or choroidal fissure cyst. A nonenhancing neoplasm cannot be excluded. 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 Mejia Stroke work up reassuring: Lipid profile: TC 174, Trig 58, LDL 111, HDL 51 HgbA1C: 5.5 Troponin neg ECHO: 50-55% EF, mild concentric LVH, normal RV pressure, grade 1 diastolic Hypercoagulability work up pending Code: Full (2) Focal seizure: Total Time Total Time Spent Total Time Spent (In Minutes): 35mins Discharge Plan Discharge Items Patient Disposition: Home - Self-Care Reason For Visit: CVA Discharge Diagnosis: Seizure R temporal lobe lesion Activity: Per Instructions section Non-emergency contact: Primary Care Provider Call non-emergency contact if: you have any medication questions and your symptoms worsen Follow-up/Referrals: Caleb Galicia III, MD [Primary Care Provider] - Diet: Regular Addtl Attending Provider Instructions: Mr. Nagel you were admitted for concern of having an unresponsive episode prior to coming to the hospital. Your work up was not concerning for a stroke. However you were found to have a lesion in the right temporal lobe of your brain which could have caused your unresponsive episode. The episode was consistent with a seizure per our neurologist, Dr. Mejia. Please follow the instructions below after your discharge: Please take Keppra 500mg (1 pill) twice a day. It is a seizure medication. Your next dose will be tomorrow morning. A prescription has been sent to your pharmacy, [facility] in [place] Please avoid operating machinery, driving, swimming in a pool or taking a bath, or using a ladder. Please avoid any other activity which might put you in danger if you loose consciousness and have a seizure again Follow up with neurology, appointment with Dr. Mejia has been requested on your behalf and you should expect a phone call Follow up with Neurosurgery within 3 weeks for further care regarding your brain lesion. Our nurse navigator has been requested to arrange for an appointment on your behalf and you should expect a call in the next 2 days Pending Studies at Discharge: Yes Studies:: hypercoagulability work up (completed as part of stroke protocol) Stand-Alone Forms: My [facility], Smoking Cessation Medications and DC Order Prescriptions: New levetiracetam [Keppra] 500 mg Tablet 500 mg PO BID Qty: 30 RF: 2 Continued One-A-Day Men's Multivitamin 400-20-300 mcg Tablet 1 tab PO DAILY RF: 0 Discharge Orders: Discharge Order (Routine); Ordered 10/17/19 Ordered By: Nasim Mota/Other Patient Handouts: Seizures Partial Know What Do, Levetiracetam Oral tablet Admission Data Admit Date/Time: 10/17/19 01:28 Attending Provider: Richardson Georges Admit Provider: Cr Smith Primary Care Provider: Caleb Galicia III Other Providers: Cr Smith ; Mynor Mejia Other Interventions: Discharge Summary Assessment (RN) Last Done: 10/17/19 15:07 DC Date/Time DO NOT enter until pt leaves facility: 10/17/19 17:23 Supervising Physician Co-Signing Physician Notes Resident Physician Supervision Note: I was present with PGY3 Dr. Nasim Jaime during the discharge history and exam. I discussed the case with the resident and agree with the findings and plan as documented in the discharge note. Any exceptions or clarifications are listed here: none. 64yo male with no significant PMH who presented with a several minute-long episode of staring and unresponsiveness. During work-up for possible TIA he was found to have a right-sided temporal lobe lesion. See Dr Jaime's note above. EEG was consistent with epileptiform activity stemming from the temporal lobe on the right. He was started on keppra 500mg BID as his spell prior to admission was likely a focal seizure with impaired consciousness (previously known as "complex partial seizure"). He was seen by Dr Mynor Mejia, [facility], who advised ongoing use of keppra for seizure prevention and [facility] neurosurgery evaluation as outpatient. He did NOT have any events during the actual stay that were concerning for seizures. Neuro exam was normal while hospitalized as well. There was no concern of encephalitis/infectious process of the brain. The exact etiology of the temporal lobe lesion is uncertain at time of dischar ge. This could be a cystic structure vs low-grade glioma vs other. Discharge exam: gen - NAD, a/o x 3 heart - RRR, s1 s2 lungs - CTA b/l abd - soft NT ND BS+ ext - no edema neuro - speech clear; strength 5/5 x 4 exts; no facial droop As noted above TIA was NOT suspected as the cause of his presentation. Due to the hol we were unable to schedule neurosurgery f/u for after discharge. However, this will be set up as soon as possible once offices are open after the holiday. Documented By: Richardson Georges MD Resident Activity Tracking Resident Involvement: Resident Care Provided Care Provided: Adult [facility] Medicine
[2019-10-17] MEDS ORDERED: STROKE PATIENT DISCHARGE STA (15:26)
--- NOTE | 2019-10-18 14:32 | Billing Data ---
Date of Service October 17, 2019 Coding Level of Care Code D/C Day Management >30 mins
[2019-10-23 14:05] LABS: Anti Cardiolipin Ab IgG <14 GPL; Anti Cardiolipin Ab IgM <12 MPL; Anti-Cardiolipin Ab IgA <11 APL; Anti-Thrombin III Activity 100 % activity (80-120); B2 Glycoprotein IgA <9 SAU (<=20); B2 Glycoprotein IgG <9 SGU (<=20); B2 Glycoprotein IgM <9 SMU (<=20); PTT LA Screen 37 sec (<=40); Protein S Functional(Activity) 90 % (70-150)
== END 2019-10-17 17:23 | disposition home or self-care (01) | DRG 101 ==
LOC: ED 22:17 → SUATTDRO 10-17 01:28 → 2E 10-17 01:28